=== PATIENT | male | born 1960 ===

== ENCOUNTER 2023-10-02 06:15 | Day surgery (SDC) | payer OTHER ==
[2023-09-25 09:49] LABS: URINE APPEARANCE Clear; URINE BILIRRUBIN Negative (NEGATIVE); URINE BLOOD Negative; URINE GLUCOSE Negative (NEGATIVE); URINE LEUKOCYTE Negative; URINE NITRATE Negative; URINE PROTEIN Negative (NEGATIVE)
[2023-09-25 09:50] LABS: HEMATOCRIT 38.7 % (39.0-48.0); HEMOGLOBIN 13.5 g/dL (13-16.00); MEAN CELL VOLUME 86.5 fL (80.0-100.00); MEAN CORPUSCULAR HEMOGLOBIN 30.1 pg (27.00-32.0); MEAN CORPUSCULAR HGB CONC 34.8 g/dl (32.0-36.0); PLATELET COUNT 214 K/uL (150-450); RED BLOOD COUNT 4.47 M/uL (4.00-6.00); RED CELL DISTRIBUTION WIDTH 13.3 % (11.5-14.5)
[2023-09-25 09:54] LABS: URINE BACTERIA 6.2 uL (0.0-1933); URINE EPITHELIAL CELLS 1.6 uL (0.0-38.8); URINE RBC 13.1 uL (0.0-20.8); URINE WBC 2.6 uL (0.0-23.2)
[2023-09-25 09:59] LABS: URINE COLOR YelloW
[2023-09-25 11:05] LABS: INR 1.02; PARTIAL THROMBOPLASTIN TIME 31.6 SECONDS (22.0-34.0); PROTHROMBIN TIME 10.7 SECONDS (9.0-11.5)
[2023-09-25 11:21] LABS: CALCIUM 8.8 mg/dL (8.5-10.1); CREATININE SERUM 0.83 mg/dL (0.70-1.30); GFR 94.19; POTASSIUM 3.58 mEq/L (3.5-5.1)
[~2023-10-02] VITALS: Ht 182.9 cm; Wt 79.8 kg
[~2023-10-02 06:15] MED LIST: CHILDREN'S ASPI81 MG PO; ELIQUIS2.5 MG PO; LOSARTAN-HCTZ1 EAC2 PO
[2023-10-02] MEDS ORDERED: CEFAZOLIN SODIUM 1,000 MG VIAL ONE (06:35)
[2023-10-02] MEDS ORDERED: BUPIVACAINE HCL/MPF 0.5% 30ML VIAL ONE (07:27)
[2023-10-02] MEDS ORDERED: TRIAMCINOLONE ACETONIDE 40 MG/ML VIAL ONE (07:51)
== END 2023-10-02 10:20 | disposition home or self-care (01) ==
LOC: CIR.AMB 06:15
PROVIDERS: ATTEND Surgery Surgery of the Hand
DX: M67.843 Other specified disorders of tendon, right hand (principal); I10 Essential (primary) hypertension